=== PATIENT | female | born 1970 | race Caucasian/White ===

== ENCOUNTER → 2019-08-28 | Outpatient (CLI) | payer SELFPAY ==
[~2019-08-28] VITALS: Ht 170 cm; Wt 86.0 kg
[~2019-08-28] MED LIST: CATHETER FLUSH 10 ML SYR IV PRN; REGADENOSON 0.4 MG/5 ML SYR (LEXISCAN) IV ONE; meTOprolol 5 MG/5 ML (LOPRESSOR) VIAL IV ONE; meTOprolol 5 MG/5 ML (LOPRESSOR) VIAL ONE
[2019-08-28 13:17] VITALS: BP 133/78
--- NOTE | 2019-08-28 17:34 | STRESS TEST ---
DATE OF SERVICE: 08/28/2019 LEXISCAN MYOVIEW STRESS TEST REPORT REFERRING PHYSICIAN: . Baseline heart rate is 100. Baseline blood pressure 134/75. Baseline EKG sinus rhythm with no ischemic changes. In summary, the patient was injected with 11.0 mCi of technetium-99 Myoview and the resting images were obtained. Then, the patient received 0.4 mg of Lexiscan followed by a 32.0 mCi of technetium-99 Myoview. Throughout the test, there were no EKG changes. The resting and stress images were reviewed and compared in the short axis, horizontal long axis, and vertical long axis views. Review of the images showed good radiotracer uptake with no significant ischemia or infarction. SSS is 3, SDS 3, TID value 0.93. On the gated images, the left ventricle appeared to be normal size with normal contractility. Calculated ejection fraction 59%. CONCLUSION: 1. The patient tolerated Lexiscan well. 2. No ischemia or infarction on SPECT images. 3. Normal left ventricular size with normal contractility. Calculated ejection fraction 59%. Job ID: [id number] DocumentID: [id number] Dictated Date: 08/28/2019 15:21:19 Service Center Appraiser Date: 08/28/2019 17:34:07 Dictated By: LOYD FITZPATRICK MD
== END ==
LOC: CARD 10:49
PROVIDERS: ATTEND Internal Medicine Cardiovascular Disease
DX: I35.0 Nonrheumatic aortic (valve) stenosis (principal); I35.8 Other nonrheumatic aortic valve disorders; I10 Essential (primary) hypertension
CPT/HCPCS: 78452; 93017; 93306

== ENCOUNTER 2022-06-21 10:32 | Outpatient (RCR) | payer OTHER | END 2022-07-02 | disposition home or self-care (01) | LOC: ONC 10:32 | PROVIDERS: ATTEND Internal Medicine Hematology & Oncology | DX: D50.9 Iron deficiency anemia, unspecified (principal) | CPT/HCPCS: 99204 ==

== ENCOUNTER → 2022-07-20 | Outpatient (CLI) | payer OTHER ==
[~2022-07-20] VITALS: Ht 170.2 cm; Wt 82.6 kg
[~2022-07-20] MED LIST changes: +AMLO-250 PO; +ASPI-1238 PO; +ATEN50TA PO; -CATHETER FLUSH 10 ML SYR IV PRN; +DULA1.5P2 SQ; +FERR-65 PO; +HYDR-3817 PO; +HYDR25TA4 PO; +LOVA40TA2 PO; +PRAM0.5T9 PO; +PREG150C PO; -REGADENOSON 0.4 MG/5 ML SYR (LEXISCAN) IV ONE; -meTOprolol 5 MG/5 ML (LOPRESSOR) VIAL IV ONE; -meTOprolol 5 MG/5 ML (LOPRESSOR) VIAL ONE
== END | disposition home or self-care (01) ==
LOC: PREOP 05:38
PROVIDERS: ATTEND Surgery
DX: Z01.818 Encounter for other preprocedural examination (principal)

== ENCOUNTER 2022-08-02 07:36 | Day surgery (SDC) | payer OTHER ==
[~2022-08-02] VITALS: Ht 170.2 cm; Wt 82.6 kg
[2022-08-02] MEDS ORDERED: LACTATED RINGERS 1,000 ML IV STA (08:14)
[2022-08-02] MEDS ORDERED: HURRICAINE EXT TUBE (BENZOCAINE) XX PRN (08:15)
[2022-08-02 08:20] VITALS: BP 132/75
--- NOTE | 2022-08-02 08:26 | Progress Note-Pre Operative ---
Pre-Operative Progress Note Date of Available H&P: Jul 11, 2022 Date H&P Reviewed: Aug 02, 2022 Time H&P Reviewed: 08:24 History & Physical: H&P Reviewed, Patient Examed, No changes noted Pre-Operative Diagnosis: iron def anemia, occult + stool PAULA LOVELACE DO Aug 02, 2022 08:26
[2022-08-02] MEDS ORDERED: PROPOFOL INJECTION 50 ML IV ONE (11:21)
[2022-08-02] MEDS ORDERED: PANT40TA2 PO (12:01)
--- NOTE | 2022-08-02 12:01 | Anesthesia-General Post-Op ---
MAC Patient Condition Mental Status/LOC: Same as Preop Cardiovascular: Satisfactory Nausea/Vomiting: Absent Respiratory: Satisfactory Pain: Controlled Complications: Absent Post Op Complications Complications None Follow Up Care/Instructions Patient Instructions None needed. Anesthesiology Discharge Order Discharge Order Patient is doing well, no complaints, stable vital signs, no apparent adverse anesthesia problems. No complications reported per nursing. EVELYN GILL CRNA Aug 02, 2022 12:01
[2022-08-02 12:07] VITALS: BP 95/59
[2022-08-02 12:12] VITALS: BP 130/67
[2022-08-02 12:15] VITALS: BP 122/57
[2022-08-02 12:50] VITALS: BP 122/57
--- NOTE | 2022-08-02 18:54 | OPERATIVE REPORT ---
DATE OF SERVICE: 08/02/2022 PREOPERATIVE DIAGNOSES: Iron deficiency anemia, occult positive stool. PROCEDURE: EGD with biopsies, colonoscopy. SURGEON: Paula Alvares DO ANESTHESIA: Per ENGRAVER RUBBER. ESTIMATED BLOOD LOSS: None. COMPLICATIONS: None. INDICATIONS: The patient is a 51-year-old female with iron deficiency anemia and occult positive stool. She understands risks and benefits of procedure and wishes to proceed. Consent was signed in chart. DESCRIPTION OF PROCEDURE: The patient was taken to the endoscopy suite, placed in left lateral recumbent position. Timeout was performed. Scope was inserted in the mouth, down the esophagus, stomach, into the duodenum without difficulty. No polyps, masses or ulcerations within the duodenum. Scope was slowly retracted back to stomach where it was further insufflated. Biopsy of the antrum was obtained. No polyps, masses or ulcerations. In the body of the stomach, there were 2 small ulcers present. Biopsy was obtained. Scope was retroflexed noting no other pathology. Scope was returned to its normal position, slowly withdrawn in the distal esophagus. No polyps, masses or ulcerations. Biopsy of GE junction was obtained. Scope was then slowly retracted back until completely removed. The patient then had digital rectal exam performed. No palpable polyps, masses or ulcerations. Scope was inserted in the rectum and advanced all the way to the cecum with minimal difficulty. Prep was adequate, irrigation and suction. Scope was slowly retracted back. No polyps, masses or ulcerations within the cecum, ascending, transverse, descending and sigmoid colon. Once in the rectum, scope was retroflexed noting no other pathology. Scope was returned to its normal position and slowly withdrawn until completely removed. The patient tolerated the procedure well without any complications, taken to recovery room in stable condition. RECOMMENDATIONS: The patient will need repeat colonoscopy in 10 years unless family history of colon cancer, which will then be in 5 years. Any issues before that, be seen at that time. The patient with gastric ulcer, two small ones, which we will start her on Protonix 40 mg daily. We will have her follow up in 2 weeks and await biopsy results for further recommendations. Job ID: [id number] DocumentID: [id number] Dictated Date: 08/02/2022 12:02:52 Enrollment Nurse Date: 08/02/2022 18:52:00 Dictated By: PAULA ALVARES DO
== END 2022-08-02 12:46 | disposition home or self-care (01) ==
LOC: ENDO 07:36
PROVIDERS: ATTEND Surgery
DX: D50.9 Iron deficiency anemia, unspecified (principal); K25.9 Gastric ulcer, unspecified as acute or chronic, without hemorrhage or perforation; R19.5 Other fecal abnormalities; F17.210 Nicotine dependence, cigarettes, uncomplicated
CPT/HCPCS: 84703; 88305

== ENCOUNTER 2022-08-17 13:25 | Outpatient (RCR) | payer OTHER ==
[~2022-08-17 13:25] MED LIST changes: +PANT40TA2 PO
[2022-08-17 13:56] LABS: BASOPHILS # (AUTO) 0.1 10^3/uL (0.0-0.1); BASOPHILS % (AUTO) 1 % (0-10); EOSINOPHILS # (AUTO) 0.1 10^3/uL (0.0-0.3); EOSINOPHILS % (AUTO) 1 % (0-10); HEMATOCRIT 36 % (35-52); HEMOGLOBIN 10.2 g/dL (11.5-16.0); LYMPHOCYTES # (AUTO) 2.8 10^3/uL (1.0-4.0); LYMPHOCYTES % (AUTO) 27 % (12-44); MEAN CORPUSCULAR HEMOGLOBIN 20 pg (25-34); MEAN CORPUSCULAR HGB CONC 28 g/dL (32-36); MEAN CORPUSCULAR VOLUME 73 fL (80-99); MEAN PLATELET VOLUME 8.9 fL (9.0-12.2); MONOCYTES # (AUTO) 0.8 10^3/uL (0.0-1.0); MONOCYTES % (AUTO) 8 % (0-12); NEUTROPHILS # (AUTO) 6.5 10^3/uL (1.8-7.8); NEUTROPHILS % (AUTO) 63 % (42-75); PLATELET COUNT 389 10^3/uL (130-400); WHITE BLOOD COUNT 10.3 10^3/uL (4.3-11.0)
[2022-08-17 14:19] LABS: CALCIUM 8.8 MG/DL (8.5-10.1)
[2022-08-17 14:20] LABS: TOTAL PROTEIN 7.2 GM/DL (6.4-8.2)
[2022-08-17 14:22] LABS: BILIRUBIN,TOTAL 0.5 MG/DL (0.1-1.0)
[2022-08-17 14:24] LABS: CREATININE SERUM 0.75 MG/DL (0.60-1.30)
== END 2022-08-30 | disposition home or self-care (01) ==
LOC: ONC 13:25
PROVIDERS: ATTEND Internal Medicine Hematology & Oncology
DX: D50.9 Iron deficiency anemia, unspecified (principal)
CPT/HCPCS: 80053; 82728; 83540; 83550; 85025

== ENCOUNTER 2022-09-12 13:04 | Outpatient (RCR) | payer OTHER ==
[~2022-09-12 13:04] MED LIST changes: +FERRIC CARBOXYMALTOSE INJ 750 MG in NS (IVPB) 250 ML IV SCH
== END 2022-09-30 | disposition home or self-care (01) ==
LOC: ONC 13:04
PROVIDERS: ATTEND Internal Medicine Hematology & Oncology
DX: D50.9 Iron deficiency anemia, unspecified (principal)
CPT/HCPCS: 36415; 96365

== ENCOUNTER 2022-10-12 14:08 | Outpatient (RCR) | payer OTHER ==
[2022-10-12 13:34] LABS: BASOPHILS # (AUTO) 0.1 10^3/uL (0.0-0.1); BASOPHILS % (AUTO) 1 % (0-10); EOSINOPHILS # (AUTO) 0.3 10^3/uL (0.0-0.3); EOSINOPHILS % (AUTO) 3 % (0-10); HEMATOCRIT 46 % (35-52); HEMOGLOBIN 14.7 g/dL (11.5-16.0); LYMPHOCYTES # (AUTO) 2.5 10^3/uL (1.0-4.0); LYMPHOCYTES % (AUTO) 26 % (12-44); MEAN CORPUSCULAR HEMOGLOBIN 28 pg (25-34); MEAN CORPUSCULAR HGB CONC 32 g/dL (32-36); MEAN CORPUSCULAR VOLUME 87 fL (80-99); MEAN PLATELET VOLUME 9.3 fL (9.0-12.2); MONOCYTES # (AUTO) 0.7 10^3/uL (0.0-1.0); MONOCYTES % (AUTO) 7 % (0-12); NEUTROPHILS # (AUTO) 5.9 10^3/uL (1.8-7.8); NEUTROPHILS % (AUTO) 63 % (42-75); PLATELET COUNT 238 10^3/uL (130-400); WHITE BLOOD COUNT 9.5 10^3/uL (4.3-11.0)
[~2022-10-12 14:08] MED LIST changes: -FERRIC CARBOXYMALTOSE INJ 750 MG in NS (IVPB) 250 ML IV SCH
== END 2022-10-30 | disposition home or self-care (01) ==
LOC: ONC 14:08
PROVIDERS: ATTEND Internal Medicine Hematology & Oncology
DX: K25.9 Gastric ulcer, unspecified as acute or chronic, without hemorrhage or perforation (principal); D50.9 Iron deficiency anemia, unspecified
CPT/HCPCS: 36415; 82728; 83540; 83550; 85025

== ENCOUNTER 2023-01-11 12:36 | Outpatient (RCR) | payer OTHER ==
[2023-01-11 13:37] LABS: BASOPHILS # (AUTO) 0.1 10^3/uL (0.0-0.1); BASOPHILS % (AUTO) 1 % (0-10); EOSINOPHILS # (AUTO) 0.2 10^3/uL (0.0-0.3); EOSINOPHILS % (AUTO) 2 % (0-10); HEMATOCRIT 49 % (35-52); HEMOGLOBIN 16.4 g/dL (11.5-16.0); LYMPHOCYTES # (AUTO) 2.4 10^3/uL (1.0-4.0); LYMPHOCYTES % (AUTO) 26 % (12-44); MEAN CORPUSCULAR HEMOGLOBIN 31 pg (25-34); MEAN CORPUSCULAR HGB CONC 33 g/dL (32-36); MEAN CORPUSCULAR VOLUME 94 fL (80-99); MEAN PLATELET VOLUME 9.6 fL (9.0-12.2); MONOCYTES # (AUTO) 0.7 10^3/uL (0.0-1.0); MONOCYTES % (AUTO) 8 % (0-12); NEUTROPHILS # (AUTO) 5.9 10^3/uL (1.8-7.8); NEUTROPHILS % (AUTO) 64 % (42-75); PLATELET COUNT 266 10^3/uL (130-400); WHITE BLOOD COUNT 9.2 10^3/uL (4.3-11.0)
== END 2023-01-30 | disposition home or self-care (01) ==
LOC: ONC 12:36
PROVIDERS: ATTEND Internal Medicine Hematology & Oncology
DX: K25.9 Gastric ulcer, unspecified as acute or chronic, without hemorrhage or perforation (principal); D50.9 Iron deficiency anemia, unspecified
CPT/HCPCS: 36415; 82728; 83540; 83550; 85025

== ENCOUNTER 2023-04-26 14:19 | Outpatient (RCR) | payer OTHER | END 2023-05-02 12:09 | disposition home or self-care (01) | LOC: ONC 14:19 | PROVIDERS: ATTEND Internal Medicine Hematology & Oncology | DX: D50.9 Iron deficiency anemia, unspecified (principal); K25.9 Gastric ulcer, unspecified as acute or chronic, without hemorrhage or perforation ==

== ENCOUNTER 2023-05-17 13:24 | Outpatient (RCR) | payer OTHER | END 2023-06-01 | disposition home or self-care (01) | LOC: ONC 13:24 | PROVIDERS: ATTEND Internal Medicine Hematology & Oncology | DX: D50.9 Iron deficiency anemia, unspecified (principal) | CPT/HCPCS: 99214 ==

== ENCOUNTER → 2023-05-23 | Outpatient (CLI) | payer OTHER ==
[~2023-05-23] MED LIST changes: +HOLD METFORMIN - RECEIVED CONTRAST 20 ML VIAL IV SCH; +IOHEXOL 350 MG/ML 100 ML (OMNIPAQUE 350) VIAL IV ONE; +NS 100 ML (IVPB) BAG IV ONE
--- NOTE | 2023-05-23 10:06 | Diagnostic Imaging Report ---
EXAMINATION: CT abdomen and pelvis with intravenous contrast. TECHNIQUE: Multiple contiguous axial images were obtained through the abdomen and pelvis after the uneventful administration of intravenous contrast. All CT scans use one or more of the following dose optimizing techniques: automated exposure control, MA and/or KvP adjustment based on patient size and exam type or iterative reconstruction. HISTORY: Abdominal pain. COMPARISON: None available. FINDINGS: Limited views of the lower thorax are unremarkable. Liver is steatotic. No suspicious liver lesions are seen. There is no biliary ductal dilation. Gallbladder is normal. Pancreas is normal. Spleen is normal. 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 Right adrenal gland is normal. The kidneys are normal. There is no hydronephrosis. Urinary bladder is normal. Bowel is normal in caliber without obstruction or inflammation. No free fluid or air. No abdominal or pelvic lymphadenopathy. Aorta is normal in caliber without aneurysm. There are no suspicious osseous lesions. IMPRESSION: 1. Steatotic liver, otherwise no acute abnormality. Dictated by: Dictated on workstation # [id number]
== END ==
LOC: RAD 08:46
PROVIDERS: ATTEND Surgery
DX: K76.0 Fatty (change of) liver, not elsewhere classified (principal)
CPT/HCPCS: 74177